=== PATIENT | male | born 1980 | race Caucasian/White ===

== ENCOUNTER 2024-03-21 03:14 | Emergency (ER) | payer MEDICAID, SELFPAY ==
[2024-03-21 03:29] VITALS: BP 213/106; PULSE 79; RESP 18; TEMP 36.6; O2SAT 98; BMI 38.6
--- NOTE | 2024-03-21 03:52 | CTR_ITS ---
PROCEDURE INFORMATION: Exam: CT Abdomen And Pelvis Without Contrast Exam date and time: 03/21/2024 4:07 AM Age: 43 years old Clinical indication: Nausea and vomiting; Abdominal pain; Right; Prior surgery; Surgery date: 6+ months; Surgery type: Hernia repair. Appy; Patient HX: C/O RT flank pain with n/v. ; Additional info: R flank pain TECHNIQUE: Imaging protocol: Computed tomography of the abdomen and pelvis without contrast. Radiation optimization: All CT scans at this facility use at least one of these dose optimization techniques: automated exposure control; mA and/or kV adjustment per patient size (includes targeted exams where dose is matched to clinical indication); or iterative reconstruction. COMPARISON: No relevant prior studies available. RADIATION DOSE METRICS: Total DLP (mGy-cm): 1192.23 FINDINGS: Liver: Normal. No mass. Gallbladder and biliary ducts: Normal. No calcified stones. No ductal dilation. Pancreas: Normal. No ductal dilation. Spleen: Normal. No splenomegaly. Adrenal glands: Normal. No mass. Kidneys and ureters: Moderate right hydronephrosis and hydroureter as a consequence of a stone just beyond the right UPJ measuring 5 mm in size. Stomach and bowel: Unremarkable. No obstruction. No mucosal thickening. Appendix: Appendix is surgically absent. Intraperitoneal space: Unremarkable. No free air. No significant fluid collection. Vasculature: Unremarkable. No abdominal aortic aneurysm. Lymph nodes: Unremarkable. No enlarged lymph nodes. Urinary bladder: Unremarkable as visualized. Reproductive: Unremarkable as visualized. Bones/joints: Unremarkable. No acute fracture. Soft tissues: Umbilical hernia containing fat. CT/CT kidney stone [id number] IMPRESSION: Moderate right hydronephrosis and hydroureter as a consequence of a stone just beyond the right UPJ measuring 5 mm in size.
--- NOTE | 2024-03-21 03:53 | W.ED.ABDPA2 ---
HPI - Abdominal Pain General: Chief Complaint: Abdominal Pain Stated Complaint: V\Diah\ABD Pain Time Seen by Provider: 03/21/24 03:47 History of Present Illness: 43-year-old healthy male. Presenting with right flank and abdominal pain that started around midnight. Has had multiple episodes of vomiting. No diarrhea. No fever. Has had a history of an appendiceal rupture in the distant past as well as 2 hernia surgeries. He states they did not feel like this. No history of kidney stones. Related Data Previous Rx's Medication Instructions Recorded ketorolac 10 mg tablet 10 mg PO TID PRN pain #10 tabs 03/21/24 ondansetron 4 mg disintegrating 4 mg PO Q6H PRN nausea and 03/21/24 tablet vomiting #14 tabs oxycodone-acetaminophen 7.5 mg-325 1 tab PO Q6H PRN pain #10 tabs 03/21/24 mg tablet (Percocet) tamsulosin 0.4 mg capsule 0.4 mg PO DAILY #7 caps 03/21/24 Allergies Allergy/AdvReac Type Severity Reaction Status Date / Time No Known Allergies Allergy Verified 03/21/24 03:33 [facility] ED PFSH: Medical History Nasal sinus congestion Post-nasal drainage Costochondral chest pain Social History Smoking and tobacco/nicotine status: former use of tobacco/nicotine Physical Exam Const: GENERAL APPEARANCE: cooperative, in distress (in pain) and ill appearing (Mildly); not frail appearing HENMT: COMMON NORMALS: normocephalic, atraumatic and Normal external nose present HEAD & SCALP: normocephalic and atraumatic FACE & SINUS: normal facial exam and face symmetric NOSE: Normal external nose present Eye: COMMON NORMALS: Equal, round and reactive pupils present and EOMs intact bilaterally PUPIL: Yes Equal, round and reactive pupils present Neck/C-Spine: GENERAL: Yes trachea midline Chest: CHEST: Yes Symmetrical chest wall rise Resp: COMMON NORMALS: normal respiratory effort, No retractions, No use of accessory muscles and clear to auscultation bilaterally AUSCULTATION: clear to auscultation bilaterally Cardio: COMMON NORMALS: regular rate and regular rhythm RATE: regular rate RHYTHM: regular rhythm GI: COMMON NORMALS: Normal to inspection, nondistended, normoactive bowel sounds present PALPATION: Yes Tenderness to palpation present (GI) Details: RLQ : BLADDER/KIDNEY EXAM: Yes CVA tenderness on the right Back/Pelvis: GENERAL BACK: Yes CVA tenderness Extremity: COMMON NORMALS: no pedal edema Neuro: YOANA COMA SCALE: document GCS findings Yoana coma scale eye opening: Spontaneous [place] coma scale verbal response: Orientated [place] coma scale motor response: Obey commands [place] coma scale total score: 15 SENSORY EXAM: Yes extremities (intact) Psych: COMMON NORMALS: speech normal SPEECH: Yes normal speech Skin: COMMON NORMALS: no rashes or lesions noted GENERAL SKIN EXAM: no rashes or lesions noted Course Vital Signs: Vital signs: Vital Signs Temperature 97.9 F 03/21/24 03:29 Pulse Rate 83 03/21/24 05:13 Respiratory Rate 18 03/21/24 04:00 Blood Pressure 169/97 03/21/24 05:13 Pulse Oximetry 92 03/21/24 05:13 Oxygen Delivery Me thod Room Air 03/21/24 03:29 MDM - Abdominal Pain Medical Decision Making Pain is improved. 5 mm UPJ stone on the right explaining his pain. Laboratory is not remarkable. Blood pressure is markedly improved with pain control, although he still hypertensive. Pain medication, antiemetics, tamsulosin for blood pressure and ureteral dilation. Will be discharged. He knows to return for uncontrolled symptoms. Lab Data 03/21/24 03:53 03/21/24 03:53 Labs/Radiology: Radiology Impressions Abdomen/Pelvis CT 03/21/24 03:52 IMPRESSION: Moderate right hydronephrosis and hydroureter as a consequence of a stone just beyond the right UPJ measuring 5 mm in size. Laboratory Results WBC 8.86 10^3/uL (3.29-11.43) 03/21/24 03:53 RBC 5.12 10^6/uL (3.85-5.65) 03/21/24 03:53 Hgb 15.20 g/dL (11.27-16.99) 03/21/24 03:53 Hct 44.5 % (37-53) 03/21/24 03:53 MCV 86.9 fl (82-101) 03/21/24 03:53 MCH 29.7 pg (27-33) 03/21/24 03:53 MCHC 34.2 g/dL (30-55) 03/21/24 03:53 RDW 12.7 % (12.1-15.1) 03/21/24 03:53 Plt Count 248 10^3/cmm (157-399) 03/21/24 03:53 MPV 8.5 fL (7.4-10.4) 03/21/24 03:53 Neut % (Auto) 69.7 % 03/21/24 03:53 Lymph % (Auto) 22.6 % 03/21/24 03:53 [place] % (Auto) 6.1 % 03/21/24 03:53 Eos % (Auto) 1.1 % 03/21/24 03:53 Baso % (Auto) 0.3 % 03/21/24 03:53 Neut # (Auto) 6.17 10^3/uL (1.8-7.7) 03/21/24 03:53 Lymph # (Auto) 2.0 10^3/uL (0.8-4.8) 03/21/24 03:53 [place] # (Auto) 0.5 10^3/uL (0.2-0.9) 03/21/24 03:53 Eos # (Auto) 0.1 10^3/uL (0.0-0.8) 03/21/24 03:53 Baso # (Auto) 0.0 10^3/uL (0.0-0.1) 03/21/24 03:53 Nucleated RBC % (auto) 0 % 03/21/24 03:53 Nucleated RBCs # 0.0 /100WBC 03/21/24 03:53 Sodium 141 mmol/L (136-145) 03/21/24 03:53 Potassium 3.8 mmol/L (3.5-5.1) 03/21/24 03:53 Chloride 102 mmol/L (98-107) 03/21/24 03:53 Carbon Dioxide 25 mmol/L (22-29) 03/21/24 03:53 Anion Gap 17.8 (5-19) 03/21/24 03:53 BUN 17 mg/dL (6-20) 03/21/24 03:53 Creatinine 1.1 mg/dL (0.7-1.2) 03/21/24 03:53 GFR Calculation 73.4 mL/min (90-130) L 03/21/24 03:53 Glucose 174 mg/dL (65-115) H 03/21/24 03:53 Calculated Osmolality 298 mOsm/kg (285-295) H 03/21/24 03:53 Calcium 9.4 mg/dL (8.5-10.5) 03/21/24 03:53 Total Bilirubin 0.3 mg/dL (0.15-1.2) 03/21/24 03:53 AST 20 U/L (0-40) 03/21/24 03:53 ALT 22 U/L (0-41) 03/21/24 03:53 Alkaline Phosphatase 74 U/L (40-130) 03/21/24 03:53 C-Reactive Protein 4.5 mg/L (0.0-4.9) 03/21/24 03:53 Total Protein 7.3 g/dL (6.6-8.7) 03/21/24 03:53 Albumin 4.4 g/dL (3.5-5.2) 03/21/24 03:53 Globulin 2.9 g/dL (1.3-4.6) 03/21/24 03:53 Lipase 34 U/L (13-60) 03/21/24 03:53 Urine Color Yellow (Yellow) 03/21/24 04:30 Urine Appearance Turbid (CLEAR) A 03/21/24 04:30 Urine pH 8.5 (5-7) A 03/21/24 04:30 Ur Specific [place] 1.021 (1.005-1.030) 03/21/24 04:30 Urine Protein Trace (Negative) A 03/21/24 04:30 Urine Glucose (UA) Negative (Normal) 03/21/24 04:30 Urine Ketones Negative (Negative) 03/21/24 04:30 Urine Blood 1+ (Negative) A 03/21/24 04:30 Urine Nitrate Negative (Negative) 03/21/24 04:30 Urine Bilirubin Negative (Negative) 03/21/24 04:30 Urine Urobilinogen 0.2 mg/dL (Negative) 03/21/24 04:30 Ur Leukocyte Esterase Negative (Negative) 03/21/24 04:30 Urine RBC 21-50 /hpf (0-2) H 03/21/24 04:30 Urine WBC 0-5 /hpf (0-5) 03/21/24 04:30 Ur Squamous Epith Cells 0-5 /hpf (0-5) 03/21/24 04:30 Amorphous Sediment Not Reportable 03/21/24 04:30 Urine Bacteria None seen /hpf (NONE) 03/21/24 04:30 Hyaline Casts 0-4 /lpf H 03/21/24 04:30 All radiology interpretation(s) finalized by discharge Discharge Plan Discharge Patient Disposition: Home Clinical Impression: Ureterolithiasis Condition: Stable Prescriptions: New ketorolac 10 mg tablet 10 mg PO TID PRN (Reason: pain) Qty: 10 0RF oxycodone-acetaminophen [Percocet] 7.5-325 mg tablet 1 tab PO Q6H PRN (Reason: pain) Qty: 10 0RF ondansetron 4 mg tablet,disintegrating 4 mg PO Q6H PRN (Reason: nausea and vomiting) Qty: 14 0RF tamsulosin 0.4 mg capsule 0.4 mg PO DAILY Qty: 7 0RF Discontinued ibuprofen 800 mg tablet 800 mg PO Q8H PRN (Reason: pain) Qty: 60 0RF Discharge Orders: Discharge ED (Routine); Ordered 03/21/24 Ordered By: Donald Sorto Patient Instructions: Kidney Stones (ED), Opioid Safety, Pain Management Activity Restrictions/Additional Instructions: Drink plenty of liquids. Medication as directed. Return for fever greater than 100, vomiting liquids or medications, increasing pain despite treatment, any other concerns. You should strain your urine. Follow-up with urology. Coding Level of Care Code ED Brand Inspector for Kwame Esquivel
[2024-03-21] MEDS: ondansetron 2 mg/ML SDV 2 mL 4 MG IVP (03:57)
[2024-03-21] MEDS: ketorolac 30 mg/mL INJ IVP (03:59)
[2024-03-21 04:00] VITALS: BP 207/141; PULSE 77; RESP 18; O2SAT 97; O2SAT 98
[2024-03-21] MEDS: HYDROmorphone 1 mg/mL INJ 1 mL IVP (04:00)
[2024-03-21 04:01] LABS: Basophils % 0.3 %; Eosinophils # 0.1 10^3/uL (0.0-0.8); Eosinophils % 1.1 %; Hematocrit 44.5 % (37-53); Lymphocytes % 22.6 %; Mean Corpuscular HGB Conc 34.2 g/dL (30-55); Mean Corpuscular Hemoglobin 29.7 pg (27-33); Mean Corpuscular Volume 86.9 fl (82-101); Mean Platelet Volume 8.5 fL (7.4-10.4); Monocytes # 0.5 10^3/uL (0.2-0.9); Monocytes % 6.1 %; Neutrophils # 6.17 10^3/uL (1.8-7.7); Neutrophils % 69.7 %; Nucleated Red Blood Cells % 0 %; Platelet Count 248 10^3/cmm (157-399); Red Blood Count 5.12 10^6/uL (3.85-5.65); Red Cell Distribution Width 12.7 % (12.1-15.1); White Blood Count 8.86 10^3/uL (3.29-11.43)
[2024-03-21] MEDS: sodium chloride 0.9% 1,000 ML 999 ML IV (04:07)
[2024-03-21 04:33] VITALS: BP 181/94; PULSE 77; O2SAT 91
[2024-03-21 04:33] LABS: Alanine Aminotransferase 22 U/L (0-41); Albumin Level 4.4 g/dL (3.5-5.2); Alkaline Phosphatase 74 U/L (40-130); Anion Gap 17.8 (5-19); Aspartate Amino Transferase 20 U/L (0-40); Blood Urea Nitrogen 17 mg/dL (6-20); C Reactive Protein 4.5 mg/L (0.0-4.9); Calcium 9.4 mg/dL (8.5-10.5); Carbon Dioxide 25 mmol/L (22-29); Chloride 102 mmol/L (98-107); Creatinine Clr Calc Pharmacy 121.5962; Globulin 2.9 g/dL (1.3-4.6); Glomerular Filtration Rate 73.4 mL/min (90-130); Glucose 174 mg/dL (65-115); Lipase 34 U/L (13-60); Osmolality Calculated 298 mOsm/kg (285-295); Potassium 3.8 mmol/L (3.5-5.1); Sodium 141 mmol/L (136-145); Total Bilirubin 0.3 mg/dL (0.15-1.2); Total Protein 7.3 g/dL (6.6-8.7)
[2024-03-21 04:37] LABS: Bilirubin Urine Negative (Negative); Blood Urine 1+ (Negative); Glucose Urine UA Negative (Normal); Ketones Urine Negative (Negative); Leukocyte Esterase Urine Negative (Negative); Nitrate Urine Negative (Negative); Protein Urine Trace (Negative); Specific Gravity, Urine 1.021 (1.005-1.030); Urine Appearance Turbid (CLEAR); Urine Color Yellow (Yellow); Urobilinogen Urine 0.2 mg/dL (Negative); pH Urine 8.5 (5-7)
[2024-03-21 04:42] LABS: Add Urine Microscopic? YES; Bacteria Urine None Seen /hpf; Hyaline Casts Urine 0-4 /lpf; RBC Urine 21-50 /hpf (0-2); Squamous Epithelial Cell Urine 0-5 /hpf (0-5); WBC Urine 0-5 /hpf (0-5)
[2024-03-21] MEDS: oxyCODONE-APAP 5-325 mg Tablet 2 TAB PO (05:02)
[2024-03-21 05:03] LABS: Add Urine Culture? Yes
[2024-03-21] MEDS: ondansetron 4 MG Tablet 8 MG PO (05:03)
[2024-03-21 05:13] VITALS: BP 169/97; PULSE 83; O2SAT 92
== END 2024-03-21 05:15 | disposition home or self-care (01) ==
PROVIDERS: Emergency Provider Emergency Medicine
DX: N20.1 Calculus of ureter (principal); Z87.891 Personal history of nicotine dependence
CPT/HCPCS: 36415; 74176; 80053; 81001; 83690; 85025; 86140; 87086; 96374; 96375; 99285; J1171; J1885; J2405; J7030; Q0162